=== PATIENT | male | born 1950 | race Caucasian/White ===

== ENCOUNTER 2022-08-22 01:06 | Emergency (ER) | payer MEDICARE, SELFPAY ==
--- NOTE | ~2022-08-22 | XR_ITS ---
EXAMINATION: XR chest 1V portable INDICATION: Shortness of breath TECHNIQUE: Portable AP chest at 0031 hours COMPARISON: 06/17/2007 FINDINGS: There are minimal airspace opacities of the lung bases. No pleural effusion or pneumothorax . The cardiomediastinal silhouette is normal. IMPRESSION: 1. Bibasilar airspace opacities, consistent with atelectasis versus pneumonia. Reviewed, dictated and finalized at location A. [facility]
[2022-08-22 01:10] VITALS: BP 173/108; PULSE 75; RESP 18; TEMP 36.3; O2SAT 93
--- NOTE | 2022-08-22 01:20 | ECG_ITS ---
Measurements Intervals [place] Rate: 67 P: -39 OR: 165 QRS: 11 QRSD: 90 T: 40 QT: 374 QTc: 395 Interpretive Statements SINUS RHYTHM OTHERWISE NORMAL ECG NO PREVIOUS ECG AVAILABLE FOR COMPARISON Electronically Signed On 08-22-2022 12:47:14 [employer] by Galen Garcia M.D.
--- NOTE | 2022-08-22 01:21 | ED.GENADULT ---
HPI - General Adult General Chief complaint: Shortness of Breath/Dyspnea Stated complaint: difficulty breathing, woke up Time Seen by Provider: 08/22/22 01:15 History of Present Illness HPI narrative: 72-year-old male with smoking history presenting to the emergency department for evaluation of worsening shortness of breath. Patient states over the course of the last month he has had some worsening shortness of breath. Patient states he presented to the emergency department tonight due to worsening shortness of breath. Patient states he was attempting to sleep but just felt too short of breath. Patient reports he did use his albuterol inhaler earlier in the day that this improved his symptoms. Patient denies any prior history of congestive heart failure. Patient denies any recent water weight gain or significant swelling of his lower extremities. Patient denies any prior history of PE or DVT. Patient denies the prior diagnosis of COPD. Patient denies any cardiac history. Related Data Home Medications Medication Instructions Recorded Confirmed carbidopa ER 25 mg-levodopa 100 mg 1 tablet PO TID 06/03/21 tablet,extended release cholecalciferol (vitamin D3) 25 25 mcg PO BID 06/03/21 mcg (1,000 unit) capsule ezetimibe 10 mg tablet 10 mg PO DAILY 06/03/21 gabapentin 100 mg capsule 100 mg PO TID 06/03/21 losartan 25 mg tablet 25 mg PO DAILY 06/03/21 metoprolol tartrate 25 mg tablet 12.5 mg PO BID 06/03/21 rosuvastatin 20 mg tablet 20 mg PO QHS 06/03/21 Allergies Allergy/AdvReac Type Severity Reaction Status Date / Time No Known Allergies Allergy Verified 06/03/21 13:08 Review of Systems Review of Systems: CONSTITUTIONAL: Denies fever, chills, or sweats. EYES: Denies visual changes, redness, or discharge. ENT: Denies rhinorrhea, congestion, sore throat, or otalgia. CARDIOVASCULAR: Denies chest pain, palpitations, or edema. RESPIRATORY: See HPI GASTROINTESTINAL: Denies abdominal pain, nausea, vomiting, or diarrhea. GENITOURINARY: Denies dysuria or hematuria. SKIN: Denies rash or itching. MUSCULOSKELETAL: Denies back pain, joint pain, or myalgia. NEUROLOGIC: Denies headache, numbness, or weakness. [facility] Past Medical History Medical History Displacement of other urinary stents, initial encounter Social History Social History Smoking status: Current some day smoker Alcohol intake: never Exam Narrative: APPEARANCE: Well appearing, no pain, no distress, well-nourished. HEAD: normocephalic, atraumatic. EYES: PERRLA/EOMI, conjunctivae clear. NOSE: Normal no drainage EARS:TMS clear with good light reflex. THROAT: Pharynx clear, no exudate. NECK: Supple. No adenopathy, no masses. RESPIRATORY: Airway patent, respirations nonlabored. Expiratory wheeze in all lung leigh. CARDIOVASCULAR: Regular rate and rhythm without murmurs rubs or gallops. ABDOMINAL: Soft, nontender, nondistended, normal bowel sounds MUSCULOSKELETAL: Moves all extremities. Strength/ROM intact, No edema, No calf tenderness. NEURO: Alert. Cranial nerves II through XII intact. Grossly intact SKIN: Warm, dry. Normal Color Course Course Emergency Course: Differential diagnosis for patient's shortness of breath does include viral illness, COPD, CHF, pneumonia, pneumothorax. Patient does have expiratory wheeze on exam and patient will be treated with nebulized albuterol. After treatment with nebulizer butyryl patient did feel improved. Patient will be started on prednisone for suspected COPD exacerbation. Chest x-ray showed bilateral atelectasis versus pneumonia. Due to the duration of the symptoms patient will also be started on azithromycin for possible underlying atypical pneumonia. Patient was afebrile with no leukocytosis. Patient's swab for influenza COVID and RSV was negative. Patient was encouraged of close follow-up with his primar
[2022-08-22 01:30] VITALS: O2SAT 97
[2022-08-22] MEDS: ALBUTEROL SULFATE NEB 2.5 MG/3 ML INH 5 MG INHALATION ×2 (01:36→03:14)
[2022-08-22 01:38] VITALS: PULSE 74; RESP 16
[2022-08-22 01:38] LABS: Basophils Absolute Auto 0.1 K/mm3 (0.0-0.1); Basophils Percent Auto 0.8 % (0.2-1.2); Eosinophils Absolute Auto 0.3 K/mm3 (0-0.3); Eosinophils Percent Auto 3.7 % (0-4.4); Hematocrit 45.1 % (42.0-52.0); Hemoglobin 14.8 g/dL (14.0-18.0); Immature Granulocyte Absolute 0.05 K/mm3 (0.00-0.031); Immature Granulocyte Percent A 0.6 % (0-0.5); Lymphocytes Absolute Auto 3.56 K/mm3 (0.9-3.2); Lymphocytes Percent Auto 45.6 % (18.3-44.2); Mean Corpuscular HGB Conc 32.8 g/dl (32-36); Mean Corpuscular Hemoglobin 29.9 pg (26-34); Mean Corpuscular Volume 91.1 fl (80-100); Mean Platelet Volume 10.5 fl (7.4-10.4); Monocytes Absolute Auto 0.6 K/mm3 (0.1-0.6); Monocytes Percent Auto 8.1 % (2.6-8.5); Neutrophils Absolute Auto 3.2 K/mm3 (1.3-6.7); Neutrophils Percent Auto 41.2 % (45.5-73.1); Platelet Count Result 176 k/mm3 (150-375); Red Blood Count 4.95 M/mm3 (4.6-6.20); Red Cell Distribution Width 13.4 % (11.5-14.5); White Blood Count 7.8 K/mm3 (4.5-10.0)
[2022-08-22 01:55] LABS: Alanine Aminotransferase 25 U/L (6-50); Alkaline Phosphatase 47 U/L (38-126); Anion Gap 3 mmol/L (8-16); Aspartate Amino Transferase 28 U/L (17-59); Bilirubin,Total 0.6 mg/dL (0.2-1.3); Blood Urea Nitrogen 17 mg/dL (9-20); Calcium 8.8 mg/dL (8.4-10.2); Carbon Dioxide 31 mmol/L (22-30); Chloride 104 mmol/L (98-107); Estimated CRCL calculation 85 ml/min; Estimated Glomerular Filt Rate > 60; Glucose 105 mg/dL (65-110); Potassium 4.2 mmol/L (3.4-5.0); Sodium 138 mmol/L (137-145)
[2022-08-22 02:03] LABS: NT Pro B Type Natriuretic Pept 115 pg/mL (19.9-100)
[2022-08-22 02:14] LABS: Influenza A QL RT-PCR Negative (Negative); Influenza B QL RT-PCR Negative (Negative); RSV RNA, RT-PCR Negative (Negative); SARS-CoV-2 RNA PCR Negative
[2022-08-22 02:16] VITALS: BP 126/75; PULSE 71; RESP 23; O2SAT 100
[2022-08-22 02:31] VITALS: BP 127/74; PULSE 76; RESP 22; O2SAT 96
--- NOTE | 2022-08-22 02:51 | PC.NURSE ---
Pt states he feels better after breathing treatment. Wheezing still heard, but has improved.
[2022-08-22] MEDS: methylPREDNISolone SOD SUCC 125 MG VIAL IV PUSH (03:14)
[2022-08-22 04:16] VITALS: BP 128/72; PULSE 80; RESP 20; O2SAT 97
== END 2022-08-22 04:23 | disposition home or self-care (01) ==
PROVIDERS: Emergency Provider Emergency Medicine
DX: J44.1 Chronic obstructive pulmonary disease with (acute) exacerbation (principal); F17.200 Nicotine dependence, unspecified, uncomplicated; Z20.822 Contact with and (suspected) exposure to COVID-19
CPT/HCPCS: 36415; 71045; 80053; 83880; 85025; 87637; 93005; 94640; 96365; 96375; 99284; J0456; J2930